=== PATIENT | female | born 1980 | race Caucasian/White ===

== ENCOUNTER 2017-10-28 17:41 | Emergency (ER) | payer OTHER ==
[~2017-10-28] VITALS: Ht 162.6 cm; Wt 86.2 kg
[2017-10-28] MEDS ORDERED: ZPAK PO (18:32)
[2017-10-28] MEDS ORDERED: MEDROLDOSEPACK PO (18:32)
[2017-10-28] MEDS ORDERED: TESSALON PERLE100 M1 PO (18:34)
[2017-10-28] MEDS ORDERED: BENZONATATE200 MG PO (18:35)
[2017-10-28 19:05] VITALS: BP 139/79
== END 2017-10-28 19:06 | disposition home or self-care (01) ==
LOC: M.ERS 17:41
DX: J18.9 Pneumonia, unspecified organism (principal)

== ENCOUNTER 2018-06-20 19:58 | Emergency (ER) | payer OTHER ==
[~2018-06-20] VITALS: Ht 162.6 cm; Wt 86.2 kg
[~2018-06-20 19:58] MED LIST: BENZONATATE200 MG PO; MEDROLDOSEPACK PO; TESSALON PERLE100 M1 PO; ZPAK PO
[2018-06-20] MEDS ORDERED: CLEOCIN HCL150 MG (20:07)
[2018-06-20] MEDS ORDERED: LIDOCAINE VISC100 ML PO (20:40)
[2018-06-20] MEDS ORDERED: KEFLEX500 M1 PO (20:40)
[2018-06-20] MEDS ORDERED: NORCO 5-325 TA1 EACH PO (20:40)
[2018-06-20 20:57] VITALS: BP 152/88
== END 2018-06-20 20:57 | disposition home or self-care (01) ==
LOC: M.ERS 19:58
DX: K04.7 Periapical abscess without sinus (principal); R11.2 Nausea with vomiting, unspecified; Z98.890 Other specified postprocedural states; Z88.0 Allergy status to penicillin

== ENCOUNTER → 2019-11-10 | Outpatient (CLI) | payer OTHER ==
[~2019-11-10] MED LIST changes: +CLEOCIN HCL150 MG; +KEFLEX500 M1 PO; +LIDOCAINE VISC100 ML PO; +NORCO 5-325 TA1 EACH PO
== END ==
LOC: M.RAD 15:45
PROVIDERS: ATTEND Nurse Practitioner Family
DX: Z12.31 Encounter for screening mammogram for malignant neoplasm of breast (principal)

== ENCOUNTER 2020-03-03 19:57 | Emergency (ER) | payer OTHER ==
[~2020-03-03] VITALS: Ht 162.6 cm; Wt 97.5 kg
[2020-03-03] MEDS ORDERED: COUGH DROPS2.7 MG MUCOUS MEM (20:12)
[2020-03-03] MEDS ORDERED: COLD & COUGH E118 ML PO (20:12)
[2020-03-03] MEDS ORDERED: DELSYM30 MG/5 M1 PO (20:12)
[2020-03-03] MEDS ORDERED: PHENERGAN 25 MG25 M1 PO (21:52)
[2020-03-03] MEDS ORDERED: MEDROLDOSEPACK PO (21:52)
[2020-03-03] MEDS ORDERED: ACETAMINOPHEN-1 EAC2 PO (21:52)
[2020-03-03 22:00] VITALS: BP 130/82
== END 2020-03-03 22:00 | disposition home or self-care (01) ==
LOC: M.ERS 19:57
DX: R05 Cough (principal); R51.9 Headache, unspecified; Z90.89 Acquired absence of other organs; Z88.0 Allergy status to penicillin; Z79.899 Other long term (current) drug therapy; Z20.828 Contact with and (suspected) exposure to other viral communicable diseases